=== PATIENT | female | born 1955 ===

== ENCOUNTER 2016-11-07 22:41 | Inpatient (IN) | payer MEDICARE ==
[2016-11-07] MEDS ORDERED: Sodium Chloride 0.9% 1,000 ML IV STA (23:06)
--- NOTE | 2016-11-07 23:10 | ED PDOC ---
HPI: Abdomen Time Seen by Provider: 11/07/16 22:52 Chief Complaint (Nursing): Abdominal Pain History Per: Patient History/Exam Limitations: no limitations Onset/Duration Of Symptoms: Mins (30) Outside of [place] travel?: No Current Symptoms Are (Timing): Still Present Context: Other (hx Renal calculi) Severity: Severe Pain Scale Rating Of: 9 Location Of Pain/Discomfort: Other (left flank) Quality Of Discomfort: Sharp, Stabbing Associated Symptoms: Nausea, Vomiting. denies: Fever, Chills, Diarrhea, Loss Of Appetite, Back Pain, Chest Pain, Constipation, Urinary Symptoms Alleviating Factors: None Additional History Per: Patient Additional Complaint(s): 61 y/o female with PMHx HTN, DM, HLD, and Renal/Ureteral Calculi who presents this evening complaining of nausea, vomiting, and sudden onset sharp/ stabbing left flank pain x30 minutes which she complains is consistent with her PMHx of Renal Calculi. Pain is 9/10 and constant, nonradiating. Emesis is nonbloody and nonbillious. No chest pain, shortness of breath, cough, fever, or urinary complaints. No other complaints at this time. Past Medical History Vital Signs: Last Vital Signs Temp 98.6 F 11/08/16 15:30 Pulse 77 11/08/16 15:30 Resp 18 11/08/16 15:30 BP 106/64 11/08/16 15:30 Pulse Ox 94 L 11/08/16 15:30 - Medical History PMH: Diabetes, HTN, Hypercholesterolemia, Kidney Stones Denies: Chronic Kidney Disease - Surgical History Surgical History: Appendectomy, Cholecystectomy - Family History Family History: States: Unknown Family Hx - Social History Current smoker - smoking cessation education provided: No Alcohol: None Drugs: Denies - Home Medications Home Medications: Ambulatory Orders Medication Instructions Recorded Aspirin [Adult Low Dose Aspirin EC] 81 mg PO DAILY #0 tablet. 02/17/16 Atenolol [Tenormin] 50 mg PO DAILY #0 tab 02/17/16 Enalapril Maleate [Vasotec] 20 mg PO DAILY #0 tab 02/17/16 Glimepiride [Amaryl] 1.5 mg PO BID #0 tab 02/17/16 Omeprazole 20 mg PO DAILY #0 capsule. 02/17/16 Sitagliptin Phos/Metformin HCl 50 mg PO BID #0 tablet 02/17/16 [Janumet 50-1,000 mg Tablet] Dextran 70/Hypromellose 2 drop OD Q4 #1 bottle 07/28/16 [Artificial Tears Eye Drops] Polyethylene Glycol/Polyvinyl 1 appl OD HS #1 bottle 07/28/16 [Artificial Tears] Prednisone [Deltasone] 20 mg PO DAILY #30 tablet 07/28/16 Dextran/Hypromellose/Glycerin 1 drop BOTHEYES DAILY 11/08/16 [Genteal Tears 0.1%-0.2%-0.3%] Fluticasone Propionate [Flovent 1 spray PADILLA DAILY 11/08/16 Diskus] - Allergies Allergies/Adverse Reactions: Allergies Allergy/AdvReac Type Severity Reaction Status Date / Time No Known Allergies Allergy Verified 05/04/16 09:49 Review of Systems ROS Statement: Except As Marked, All Systems Reviewed And Found Negative Constitutional: Negative for: Fever, Chills Cardiovascular: Negative for: Chest Pain Respiratory: Negative for: Shortness of Breath Gastrointestinal: Positive for: Nausea, Vomiting, Other (flank pain) Genitourinary Female: Negative for: Dysuria, Hematuria Musculoskeletal: Negative for: Back Pain Physical Exam - Reviewed Nursing Documentation Reviewed: Yes Vital Signs Reviewed: Yes - Physical Exam Appears: Positive for: Well, Non-toxic, Uncomfortable (actively vomiting - emesis nonbloody and non billious) Head Exam: Positive for: ATRAUMATIC, NORMOCEPHALIC Skin: Positive for: Normal Color, Warm, DRY Eye Exam: Positive for: EOMI, Normal appearance, PERRL ENT: Positive for: Normal ENT Inspection Neck: Positive for: Normal, Painless ROM Cardiovascular/Chest: Positive for: Regular Rate, Rhythm Respiratory: Positive for: CNT, Normal Breath Sounds Gastrointestinal/Abdominal: Positive for: Normal Exam, Bowel Sounds, Soft. Negative for: Tenderness Back: Positive for: Normal Inspection. 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 ) - Laboratory Results Result Diagrams: 11/07/16 23:17 11/07/16 23:17 - ECG O2 Sat by Pulse Oximetry: 100 (RA) Pulse Ox Interpretation: Normal Medical Decision Making Medical Decision Making: Initial Impression: 61 y/o female with history of Renal Calculi presenting with nausea, vomiting, and left flank pain in the setting of PMHx Renal Calculi. Differential includes nonspecific abdominal pain, renal calculi, and pyleonephritis. Initial Plan: - Labs and UA - EKG - CT Abdomen/Pelvis - IVF - IV Toradol [facility] Final Radiology Report Call: [phone] assistance Online chat: [email or web address] Patient Name: DAHLIA SPAULDING (Age): 1955 61 Gender: F Date of Exam: 11/07/2016 Referring Physician: Gordon Isabel # of Images: [phone] Ordered As: CT ABD PELVIS W O PO OR IV CONT Page 1 of 2 EXAM: CT Abdomen and Pelvis Without Intravenous Contrast CLINICAL HISTORY: 61 years old, female; Pain; Abdominal pain; Flank; Left lower quadrant (llq); Additional info: Renal colic TECHNIQUE: Axial computed tomography images of the abdomen and pelvis without intravenous contrast. This CT exam was performed using one or more of the following dose reduction techniques: automated exposure control, adjustment of the mA and/or kV according to patient size, and/ or use of iterative reconstruction technique. Coronal and sagittal reformatted images were created and reviewed. COMPARISON: No relevant prior studies available. FINDINGS: Lower thorax: Minimal atelectasis/scarring. Small hiatal hernia. ABDOMEN: Liver: Mild fatty infiltration. Gallbladder and bile ducts: Cholecystectomy. No ductal dilation. Pancreas: Unremarkable. No ductal dilation. Spleen: No splenomegaly. Adrenals: No mass. Kidneys and ureters: Large LEFT renal cyst with focal peripheral calcification. Tiny RIGHT renal angiomyolipoma. No renal calculi. Mild pelvocaliectasis of LEFT kidney. Mildly dilated LEFT proximal ureter. 0.6 x 0.4 x 0.3 cm calculus within LEFT mid ureter. Stomach and bowel: Scattered diverticula within colon. No associated inflammatory stranding. No definite mural thickening. No obstruction. Appendix: No findings to suggest acute appendicitis. PELVIS: Bladder: Unremarkable. No stones. Reproductive: Unremarkable as visualized. ABDOMEN and PELVIS: Intraperitoneal space: No significant fluid collection. No free air. Bones/joints: Chronic L5 pars defects. No acute fracture. Soft tissues: Tiny umbilical hernia containing fat. Vasculature: [id number] atherosclerotic disease of aorta. No aneurysm. Lymph nodes: No pathologically enlarged lymph nodes. IMPRESSION: 1. LEFT mid ureteral calculus with mild hydroureteronephrosis. 2. Incidental/non-acute findings are described above. Thank you for allowing us to participate in the care of your patient. Dictated and Authenticated by: Shai Lerner MD 11/08/2016 12:35 AM Eastern Time ([place] & [place]) 01:12: Patient continues to complain of pain and was given Dilaudid 1 mg IV. 1:50: Given patient requirement of 3 doses opiate for analgesia provider will admit for further tx and pain management; Spoke with Dr. Michel, Family Practice Resident covering Dr Charles patient for admission. Scribe Attestation: Documented by Alesha Joyner acting as a scribe for Gordon Isabel MD. Scribe Attestation: All medical record entries made by the Scribe were at my direction and personally dictated by me. I have reviewed the chart and agree that the record accurately reflects my personal performance of the history, physical exam, medical decision making, and the department course for this patient. I have also personally directed, reviewed, and agree with the discharge instructions and disposition. Disposition - Clinical Impression Clinical Impression: Ureteral calculus - Patient ED Disposition Is Patient to be Admitted: Yes Doctor Will See Patient In The: Hospital Counseled Patient/Family Regarding: Studies Performed, Diagnosis - Disposition Disposition Time: 01:50 Condition: FAIR - Pt Status Changed To: Hospital Disposition Of: Observation
[2016-11-07 23:21] LABS: BASO # 0.1 K/uL (0.0-0.2); BASO % 0.7 % (0.0-2.0); EOS # 0.2 K/uL (0.0-0.7); EOS % 1.7 % (0.0-4.0); HEMATOCRIT 36.6 % (34.0-47.0); LYMPH # 3.7 K/uL (1.0-4.3); LYMPH % 34.1 % (20.0-40.0); MEAN CELL VOLUME 78.4 fl (81.0-99.0); MEAN CORPUSCULAR HEMOGLOBIN 25.6 pg (27.0-31.0); MEAN CORPUSCULAR HGB CONC 32.7 g/dL (33.0-37.0); MEAN PLATELET VOLUME 8.6 fl (7.2-11.7); MONO # 0.5 K/uL (0.0-0.8); MONO % 4.9 % (0.0-10.0); NEUT # 6.3 K/uL (1.8-7.0); NEUT % 58.6 % (50.0-75.0); NRBC % 0.1 % (0.0-0.0); RED CELL DISTRIBUTION WIDTH 15.3 % (11.5-14.5); WHITE BLOOD COUNT 10.8 K/uL (4.8-10.8)
[2016-11-07 23:31] LABS: ALB/GLOB RATIO 1.5 (1.0-2.1); ALKALINE PHOSPHATASE 70 U/L (38-126); ALT/SGPT 33 U/L (9-52); AST/SGOT 25 U/L (14-36); BILIRUBIN,TOTAL 0.4 mg/dl (0.2-1.3); BLOOD UREA NITROGEN 16 mg/dl (7-17); CARBON DIOXIDE 27 mmol/L (22-30); CHLORIDE 103 mmol/L (98-107); GFR AFRICAN-AMERICAN > 60; GLUCOSE,RANDOM 245 mg/dL (65-105); LIPASE 93 U/L (23-300); POTASSIUM 3.4 MMOL/L (3.6-5.0); SODIUM 143 mmol/l (132-148); TOTAL PROTEIN 8.1 G/DL (6.3-8.2)
--- NOTE | 2016-11-08 00:36 | CT ---
EXAM: CT Abdomen and Pelvis Without Intravenous Contrast CLINICAL HISTORY: 61 years old, female; Pain; Abdominal pain; Flank; Left lower quadrant (llq); Additional info: Renal colic TECHNIQUE: Axial computed tomography images of the abdomen and pelvis without intravenous contrast. This CT exam was performed using one or more of the following dose reduction techniques: automated exposure control, adjustment of the mA and/or kV according to patient size, and/or use of iterative reconstruction technique. Coronal and sagittal reformatted images were created and reviewed. COMPARISON: No relevant prior studies available. FINDINGS: Lower thorax: Minimal atelectasis/scarring. Small hiatal hernia. ABDOMEN: Liver: Mild fatty infiltration. Gallbladder and bile ducts: Cholecystectomy. No ductal dilation. Pancreas: Unremarkable. No ductal dilation. Spleen: No splenomegaly. Adrenals: No mass. Kidneys and ureters: Large LEFT renal cyst with focal peripheral calcification. Tiny RIGHT renal angiomyolipoma. No renal calculi. Mild pelvocaliectasis of LEFT kidney. Mildly dilated LEFT proximal ureter. 0.6 x 0.4 x 0.3 cm calculus within LEFT mid ureter. Stomach and bowel: Scattered diverticula within colon. No associated inflammatory stranding. No definite mural thickening. No obstruction. Appendix: No findings to suggest acute appendicitis. PELVIS: Bladder: Unremarkable. No stones. Reproductive: Unremarkable as visualized. ABDOMEN and PELVIS: Intraperitoneal space: No significant fluid collection. No free air. Bones/joints: Chronic L5 pars defects. No acute fracture. Soft tissues: Tiny umbilical hernia containing fat. Vasculature: Anno-[id number]-[id number] atherosclerotic disease of aorta. No aneurysm. Lymph nodes: No pathologically enlarged lymph nodes. IMPRESSION: 1. LEFT mid ureteral calculus with mild hydroureteronephrosis. 2. Incidental/non-acute findings are described above.
[2016-11-08] MEDS ORDERED: Sodium Chloride 0.9% 1,000 ML IV STA (02:15)
[2016-11-08] MEDS ORDERED: Dextrose 50% SYRINGE Inj (50 ml) IV PRN (03:07)
[2016-11-08] MEDS ORDERED: Glucagon Recombinant 1 mg Inj IM PRN (03:07)
--- NOTE | 2016-11-08 03:16 | CP.PCM.HP ---
History of Present Illness - History of Present Illness History of Present Illness: 61 y/o F with PMH including HTN, NIDDM2, Nephrolithiasis presents to ED , accompanied by her son, with 6 hour history of left sided flank pain associated with nausea and vomiting. Patient reports gradual onset of left flank pain prior to assessment. Pain originated in left flank, radiated to groin , was "strong" in quality, and was as high as 9/10 intensity. Pain was associated with nausea and 6-8 episodes of non-bloody, non-bilious emesis. She has had similar pain in the past, 10 years ago, when she was diagnosed with a right sided kidney stone. During that episode she ultimately required lithotripsy but does not recall if procedure was shock wave or laser lithotripsy. Currently patient denies fevers, chills, chest pain, sob, diarrhea , dysuria, urinary frequency or urgency. PMD: Dr Randy Magaña, [facility] Present on Admission - Present on Admission Any Indicators Present on Admission: No History of DVT/PE: No History of Uncontrolled Diabetes: No Urinary Catheter: No Review of Systems - Constitutional Constitutional: absent: Fever - Cardiovascular Cardiovascular: absent: Chest Pain, Dyspnea, Leg Edema, Palpitations - Respiratory Respiratory: absent: Cough, Dyspnea, Chest Congestion - Gastrointestinal Gastrointestinal: Abdominal Pain (left sided flank pain), Nausea, Vomiting. absent: Constipation, Diarrhea, Hematemesis - Genitourinary Genitourinary: Hx Renal/Bladder Calculi. absent: Dysuria, Hematuria (No gross hematuria noted), Urinary Frequency, Urinary Urgency Past Patient History - Infectious Disease Hx of Infectious Diseases: None - Past Medical History & Family History Past Medical History?: Yes - Past Social History Smoking Status: Never Smoked Alcohol: None Drugs: Denies Home Situation {Lives}: With Family - CARDIAC Hx Hypercholesterolemia: Yes Hx Hypertension: Yes - PULMONARY Hx Respiratory Disorders: No - NEUROLOGICAL Other/Comment: Keller's palsy - HEENT Hx HEENT Problems: No - RENAL Hx Chronic Kidney Disease: No Hx Kidney Stones: Yes - ENDOCRINE/METABOLIC Hx Endocrine Disorders: Yes Hx Diabetes Mellitus Type 2: Yes - HEMATOLOGICAL/ONCOLOGICAL Hx Blood Disorders: No - INTEGUMENTARY Hx Dermatological Problems: No - MUSCULOSKELETAL/RHEUMATOLOGICAL Hx Musculoskeletal Disorders: No - GASTROINTESTINAL Hx Gastroesophageal Reflux: Yes - PSYCHIATRIC Hx Psychophysiologic Disorder: No Hx Substance Use: No - SURGICAL HISTORY Hx Appendectomy: Yes Hx Cholecystectomy: Yes - ANESTHESIA Hx Anesthesia: Yes Hx Anesthesia Reactions: No Hx Malignant Hyperthermia: No Meds Allergies/Adverse Reactions: Allergies Allergy/AdvReac Type Severity Reaction Status Date / Time No Known Allergies Allergy Verified 05/04/16 09:49 Physical Exam - Constitutional Appears: No Acute Distress, Other (Uncomfortable) - Head Exam Head Exam: ATRAUMATIC, NORMAL INSPECTION, NORMOCEPHALIC - Eye Exam Eye Exam: EOMI, PERRL - ENT Exam ENT Exam: Mucous Membranes Dry - Respiratory Exam Respiratory Exam: Clear to Auscultation Bilateral, NORMAL BREATHING PATTERN. absent: Rales, Rhonchi, Wheezes, Respiratory Distress - Cardiovascular Exam Cardiovascular Exam: REGULAR RHYTHM, RRR, +S1, +S2, Systolic Murmur (Grade II/ ) - GI/Abdominal Exam GI & Abdominal Exam: Normal Bowel Sounds, Soft, Tenderness (Left flank tenderness, No suprapubic tenderness). absent: Distended, Guarding, Rebound - Extremities Exam Extremities exam: Positive for: normal capillary refill. Negative for: calf tenderness, pedal edema - Back Exam Back exam: CVA tenderness (L) - Neurological Exam Neurological exam: Alert, Oriented x3 - Skin Skin Exam: Dry, Normal Color, Warm Results - Vital Signs Recent Vital Signs: Last Vital Signs Temp 98.3 F 11/07/16 22:43 Pulse 97 H 11/08/16 02:00 Resp 18 11/08/16 02:00 BP 157/73 H 11/08/16 02:00 Pulse Ox 100 11/08/16 02:05 - Labs Result Diagrams: 11/07/16 23:17 11/07/16 23:17 Assessment & Plan - Assessment and Plan (Free Text) Assessment: 61 y/o female with PMH including HTN, NIDDM2, Nephrolithiasis presented to ED with 6 hour history of gradually increasing left sided flank pain associated with nausea and vomiting. Patient was found to have CT evidence of left ureteral calculus associated with left sided hydroureteronephrosis. Pain was refractory to toradol and morphine, requiring dilaudid for adequate control. Plan: Left-sided Ureteral Calculus -CT reveals left mid ureteral calculus measuring 0.6cm x 0.4cm x 0.3cm. A mildly dilated left proximal ureter is present with hydroureteronephrosis. -Patient has history of kidney stones in the past and required lithotripsy intervention approximately 10 years ago -Based on size of calculus, will attempt medical expulsive therapy -Received flomax 0.8mg in ED -Will continue flomax 0.8mg PO daily -Pain control with toradol 30mg IV Q6 prn moderate pain and morphine 4mg IV Q4 prn severe pain -Zofran for nausea -Strain urine for calculi -Patient remains hemodynamically stable with no signs of sepsis or renal function abnormality. Will consider urology consultation if patient does not improve Hypertension -Elevated BP measurements in ED likely secondary to pain -Continue vasotec 20mg PO daily and atenolol 50mg PO daily -Follow BP and adjust medications as needed NIDDM2, with hyperglycemia -Last HgbA1c: 8.7% on 09/23/16 -Home meds held: Janumet PO BID, amaryl 1.5mg PO BID -Low dose sliding scale started -Desiree LEWIS -Hypoglycemia protocol DVT Prophylaxis -Lovenox 40mg SC daily
[2016-11-08] MEDS: Lactated Ringer's 1,000 ML IV SCH ×3 (04:10→23:58)
[2016-11-08 05:15] LABS: RBC URINE 103 /hpf (0-3); URINE BACTERIA RARE (<OCC); URINE BILIRUBIN NEGATIVE (NEGATIVE); URINE BLOOD LARGE (NEGATIVE); URINE COLOR YELLOW (YELLOW); URINE GLUCOSE (UA) >=500 mg/dL (Normal); URINE KETONE TRACE mg/dL (NEGATIVE); URINE LEUKOCYTE ESTERASE NEG Leu/uL (Negative); URINE PROTEIN 30 mg/dL (NEGATIVE); URINE UROBILINOGEN 0.2-1.0 mg/dL (0.2-1.0); WBC URINE 3 /hpf (0-5)
[2016-11-08] MEDS ORDERED: Insulin Regular 100 units/ml SC SCH (07:30)
[2016-11-08] MEDS ORDERED: FLUTICASONE PROPIONATE NAS SCH (09:00)
[2016-11-08] MEDS: Enoxaparin 40 mg Syringe SC SCH (09:34)
[2016-11-08] MEDS: Pantoprazole 40 mg EC Tab PO SCH (09:34)
--- NOTE | 2016-11-08 10:57 | CARD ---
APPROVED REPORT EKG Measurement Heart [id number] <Conclusion> Normal sinus rhythm with sinus arrhythmia Normal ECG
[2016-11-08] MEDS: Insulin Regular 100 units/ml SC SCH ×3 (11:30→22:43)
--- NOTE | 2016-11-08 11:37 | CP.PCM.PCO ---
Physician Communication Note - Physician Communication Note Physician Communication Note: Pt seen this morning. Stable. Still c/o pain. New labs ordered. Monitoring
[2016-11-08] MEDS ORDERED: Artificial Tears Opht Soln OD SCH (22:00)
[2016-11-09] MEDS: Lactated Ringer's 1,000 ML IV SCH ×2 (05:05→12:17)
[2016-11-09] MEDS: Insulin Regular 100 units/ml SC SCH ×2 (09:00→12:14)
[2016-11-09] MEDS: Enoxaparin 40 mg Syringe SC SCH (09:01)
[2016-11-09] MEDS: Pantoprazole 40 mg EC Tab PO SCH (09:01)
--- NOTE | 2016-11-09 11:53 | CP.PCM.DIS ---
Provider - Provider Date of Admission: 11/08/16 19:59 Attending physician: Noreen Cross MD Primary care physician: Dr Magaña [facility] Time Spent in preparation of Discharge (in minutes): 30 Diagnosis - Discharge Diagnosis (1) Ureteral calculus Status: Acute Comment: Stable. 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 Consider readjustment outpatient treatment (4) Diabetes Status: Chronic Comment: Controlled with [facility] Course - Lab Results Lab Results: Most Recent Lab Values WBC 10.8 K/uL (4.8-10.8) 11/07/16 23:17 RBC 4.67 Mil/uL (3.80-5.20) 11/07/16 23:17 Hgb 12.0 g/dL (12.0-16.0) 11/07/16 23:17 Hct 36.6 % (34.0-47.0) 11/07/16 23:17 MCV 78.4 fl (81.0-99.0) L 11/07/16 23:17 MCH 25.6 pg (27.0-31.0) L 11/07/16 23:17 MCHC 32.7 g/dL (33.0-37.0) L 11/07/16 23:17 RDW 15.3 % (11.5-14.5) H 11/07/16 23:17 Plt Count 257 K/uL (130-400) 11/07/16 23:17 MPV 8.6 fl (7.2-11.7) 11/07/16 23:17 Neut % (Auto) 58.6 % (50.0-75.0) 11/07/16 23:17 Lymph % (Auto) 34.1 % (20.0-40.0) 11/07/16 23: Stewart % (Auto) 4.9 % (0.0-10.0) 11/07/16 23:17 Eos % (Auto) 1.7 % (0.0-4.0) 11/07/16 23:17 Baso % (Auto) 0.7 % (0.0-2.0) 11/07/16 23:17 Neut # 6.3 K/uL (1.8-7.0) 11/07/16 23:17 Lymph # 3.7 K/uL (1.0-4.3) 11/07/16 23:17 Stewart # 0.5 K/uL (0.0-0.8) 11/07/16 23:17 Eos # 0.2 K/uL (0.0-0.7) 11/07/16 23:17 Baso # 0.1 K/uL (0.0-0.2) 11/07/16 23:17 Sodium 143 mmol/l (132-148) 11/07/16 23:17 Potassium 3.4 MMOL/L (3.6-5.0) L 11/07/16 23:17 Chloride 103 mmol/L (98-107) 11/07/16 23:17 Carbon Dioxide 27 mmol/L (22-30) 11/07/16 23:17 Anion Gap 16 (10-20) 11/07/16 23:17 BUN 16 mg/dl (7-17) 11/07/16 23:17 Creatinine 0.7 mg/dL (0.7-1.2) 11/07/16 23:17 Est GFR ( Amer) > 60 11/07/16 23:17 Est GFR (Non-Af Amer) > 60 11/07/16 23:17 POC Glucose (mg/dL) 215 mg/dL (65-110) H 11/09/16 11:19 Random Glucose 245 mg/dL (65-105) H 11/07/16 23:17 Uric Acid 3.1 mg/Dl (2.2-7.5) 11/08/16 11:45 Calcium 10.0 mg/dL (8.4-10.2) 11/07/16 23:17 Total Bilirubin 0.4 mg/dl (0.2-1.3) 11/07/16 23:17 AST 25 U/L (14-36) 11/07/16 23:17 ALT 33 U/L (9-52) 11/07/16 23:17 Alkaline Phosphatase 70 U/L (38-126) 11/07/16 23:17 Total Protein 8.1 G/DL (6.3-8.2) 11/07/16 23:17 Albumin 4.9 g/dL (3.5-5.0) 11/07/16 23:17 Globulin 3.2 gm/dL (2.2-3.9) 11/07/16 23:17 Albumin/Globulin Ratio 1.5 (1.0-2.1) 11/07/16 23:17 Lipase 93 U/L (23-300) 11/07/16 23:17 Urine Color Yellow (YELLOW) 11/08/16 04:37 Urine Clarity Clear (Clear) 11/08/16 04:37 Urine pH 6.0 (5.0-8.0) 11/08/16 04:37 Ur Specific [place] 1.017 (1.003-1.030) 11/08/16 04:37 Urine Protein 30 mg/dL (NEGATIVE) 11/08/16 04:37 Urine Glucose (UA) >=500 mg/dL (Normal) 11/08/16 04:37 Urine Ketones Trace mg/dL (NEGATIVE) 11/08/16 04:37 Urine Blood Large (NEGATIVE) 11/08/16 04:37 Urine Nitrate Negative (NEGATIVE) 11/08/16 04:37 Urine Bilirubin Negative (NEGATIVE) 11/08/16 04:37 Urine Urobilinogen 0.2-1.0 mg/dL (0.2-1.0) 11/08/16 04:37 Ur Leukocyte Esterase Neg Adalid/uL (Negative) 11/08/16 04:37 Urine RBC (Auto) 103 /hpf (0-3) H 11/08/16 04:37 Urine Microscopic WBC 3 /hpf (0-5) 11/08/16 04:37 Urine Bacteria Rare (<OCC) 11/08/16 04:37 - Hospital Course Hospital Course: 61 y/o F with PMhx of DM, HTN, Keller's Palsy presented to ED for sudden onset flank pain and nausea. CT of the abd and pelvis showed a 0.6cm L/ureteral stone and L/renal cyst. Patient was admitted and started with pain meds, zofran, IV fluids and flomax. Patient responded well to treatment, nausea resolved, she is tolerating PO, pain has improved and she is decided to DC home to [facility] outpatient treatment with PO fluids, F/U with PMD and following meds Discharge meds: FLomax 0.4mg daily Percocet 1 tab q6h PRN for pain(15) Zofran for nausea PRN Enalapril 20 mg Atenolol 50mg daily Janumet 50/1000mg BID Discharge Exam - Head Exam Head Exam: ATRAUMATIC, NORMOCEPHALIC - Eye Exam Eye Exam: PERRL - ENT Exam ENT Exam: Mucous Membranes Moist - Respiratory Exam Respiratory Exam: Clear to PA & Lateral, NORMAL BREATHING PATTERN - Cardiovascular Exam Cardiovascular Exam: REGULAR RHYTHM, +S1, +S2. absent: Gallop - GI/Abdominal Exam GI & Abdominal Exam: Normal Bowel Sounds, Tenderness (LUQ and L/flank). absent : Distended, Rebound - Extremities Exam Extremities exam: normal capillary refill - Back Exam Back exam: CVA tenderness (L). absent: CVA tenderness (R) - Neurological Exam Neurological exam: Alert, Motor Sensory Deficit, Oriented x3 Additional comments: Drop of the corner of the mouth to l/side, unable to fully close r/eye, loss of forehead wrinkling on the R/side - Psychiatric Exam Psychiatric exam: Normal Affect, Normal Mood - Skin Skin Exam: Intact, Normal Color, Warm Discharge Plan - Discharge Medications Prescriptions: Acetaminophen/Oxycodone Hydr [Percocet 10/325 mg Tab] 1 tab PO Q6H PRN #15 tab PRN Reason: Pain, Moderate (4-7) Tamsulosin HCl [Flomax] 0.4 mg PO DAILY #30 cap.er.24h - Follow Up Plan Condition: FAIR Disposition: HOME/ ROUTINE Instructions: Ureteral Stones (ED)
[2016-11-09 15:54] VITALS: BP 151/77; PULSE 79; RESP 17; TEMP 98.2; O2SAT 97
== END 2016-11-09 16:26 | disposition home or self-care (01) | DRG 694 ==
LOC: H.ER 22:41 → H.ERHOLD 11-08 01:52 → H.MEDSURG1 11-08 03:20 → OBSVTOIN 11-08 19:59
PROVIDERS: ADMIT Family Medicine Geriatric Medicine; ATTEND Family Medicine Geriatric Medicine
DX: N13.2 Hydronephrosis with renal and ureteral calculous obstruction (principal); E11.65 Type 2 diabetes mellitus with hyperglycemia; I10 Essential (primary) hypertension; E78.5 Hyperlipidemia, unspecified; E78.00 Pure hypercholesterolemia, unspecified; G51.0 Bell's palsy; Z87.442 Personal history of urinary calculi; Z79.82 Long term (current) use of aspirin

== ENCOUNTER 2017-09-13 13:55 | Emergency (ER) | payer MEDICARE ==
[2017-09-13] MEDS ORDERED: Iodixanol 320 MG/ML 100 ML BOTTLE IV ONE (14:14)
[2017-09-13] MEDS ORDERED: Sodium Chloride 0.9% 100 ML ONE (14:15)
--- NOTE | 2017-09-13 14:26 | CT ---
PROCEDURE: CT HEAD WITHOUT CONTRAST. HISTORY: CVA alert COMPARISON: 07/28/2016. TECHNIQUE: Axial computed tomography images were obtained through the head/brain without intravenous contrast. Radiation dose: Total exam DLP = 622.52 mGy-cm. This CT exam was performed using one or more of the following dose reduction techniques: Automated exposure control, adjustment of the mA and/or kV according to patient size, and/or use of iterative reconstruction technique. FINDINGS: HEMORRHAGE: No intracranial hemorrhage. BRAIN: Russell-white matter differentiation is preserved. There is no mass, mass effect or abnormal extra-axial fluid collection. There is no territorial infarction. VENTRICLES: The ventricles are normal in size, shape and configuration. CALVARIUM: The skull base and calvarium are normal. PARANASAL SINUSES: Predominantly clear. MASTOID AIR CELLS: Predominantly clear. OTHER FINDINGS: None. IMPRESSION: No acute intracranial abnormality. If there is a persistent focal neurologic deficit and an ongoing clinical concern for acute infarction, an MRI of the brain without intravenous contrast would be a more sensitive modality for evaluation of hyperacute/acute ischemic infarction.
[2017-09-13 14:35] LABS: BASO # 0.1 K/uL (0.0-0.2); BASO % 0.9 % (0.0-2.0); EOS # 0.7 K/uL (0.0-0.7); EOS % 6.8 % (0.0-4.0); HEMOGLOBIN 11.9 g/dL (12.0-16.0); LYMPH % 27.3 % (20.0-40.0); MEAN CELL VOLUME 77.6 fl (81.0-99.0); MEAN CORPUSCULAR HEMOGLOBIN 25.5 pg (27.0-31.0); MEAN CORPUSCULAR HGB CONC 32.9 g/dL (33.0-37.0); MEAN PLATELET VOLUME 8.3 fl (7.2-11.7); MONO # 0.6 K/uL (0.0-0.8); MONO % 5.6 % (0.0-10.0); NEUT # 6.5 K/uL (1.8-7.0); NEUT % 59.4 % (50.0-75.0); RBC 4.67 Mil/uL (3.80-5.20); RED CELL DISTRIBUTION WIDTH 15.5 % (11.5-14.5); WHITE BLOOD COUNT 10.9 K/uL (4.8-10.8)
[2017-09-13 14:42] LABS: INR 1.1 (0.9-1.2); PARTIAL THROMBOPLASTIN TIME 33.4 Seconds (25.6-37.1); PROTHROMBIN TIME 11.7 Seconds (9.8-13.1)
--- NOTE | 2017-09-13 14:47 | CT ---
PROCEDURE: CTA HEAD AND NECK WITH CONTRAST HISTORY: CVA alert COMPARISON: None available. TECHNIQUE: Initial noncontrast head CT was performed. Subsequently, CT angiogram of the head and neck were performed after the intravenous administration of 80 mL of Omnipaque 350. Contiguous 1.5mm thick images were obtained in the axial plane of the neck. 2-D coronal and sagittal MPR images were obtained. Imaging postprocessing was performed with 3-D images also obtained. A delayed contrast head CT was also obtained. This CT exam was performed using one or more of the following dose reduction techniques: Automated exposure control, adjustment of the mA and/or kV according to patient size, and/or use of iterative reconstruction technique. Contrast dose: 99 cc Visipaque 320 Radiation dose: Total exam DLP = 530.41 mGy-cm. FINDINGS: HEAD: Right: The intracranial internal carotid artery, and anterior and middle cerebral arteries are widely patent. Left: The intracranial internal carotid artery, and anterior and middle cerebral arteries are widely patent. Posterior circulation: The visualized intracranial vertebral arteries, basilar artery and posterior cerebral arteries are widely patent. Ther is no endoluminal filling defect to suggest thrombus. There is no intracranial saccular aneurysm. There is no abnormal enhancement on the postcontrast CT. NECK: There is a two vessel aortic arch with common origin of innominate and left common carotid artery is. There is no stenosis at the origins of the great vessels at the level of the aortic arch. Right Carotid: On the right, the common carotid, internal carotid and external carotid arteries are widely patent. There is no hemodynamically significant stenosis in the internal carotid artery by NASCET criteria. Left Carotid: On the left, the common carotid, internal carotid and external carotid arteries are widely patent. There is no hemodynamically significant stenosis in the internal carotid artery by NASCET criteria. The vertebral arteries are widely patent. The right vertebral artery is hypoplastic, an anatomic variant. The visualized soft tissues of the neck are normal. The visualized brain and cervical spine are within normal limits. There is a 4 mm noncalcified nodule in the right apex (series 3, image 209) there is also mild traction bronchiectasis in the right upper lobe with apparent fibrotic changes. The left apex is clear. IMPRESSION: No evidence of endoluminal thrombus, occlusion or definite significant stenosis. No saccular aneurysm. No evidence of hemodynamically significant stenosis in the internal carotid arteries by NASCET criteria. Patent vertebral arteries. The right vertebral artery is hypoplastic, an anatomic variant. 4 mm noncalcified nodule in the right apex. CT scan of the thorax without intravenous contrast on a nonemergent basis is recommended for complete evaluation of the lungs.
[2017-09-13 14:55] LABS: ALB/GLOB RATIO 1.2 (1.0-2.1); ALBUMIN 4.4 g/dL (3.5-5.0); ALT/SGPT 35 U/L (9-52); AST/SGOT 17 U/L (14-36); B-TYPE NATRIURETIC PEPTIDE 26.9 pg/ml (0-900); BLOOD UREA NITROGEN 13 mg/dl (7-17); CALCIUM 9.9 mg/dL (8.4-10.2); GFR AFRICAN-AMERICAN > 60; GFR NON-AFRICAN AMERICAN > 60
--- NOTE | 2017-09-13 15:06 | RAD ---
HISTORY: weakness COMPARISON: No prior. FINDINGS: LUNGS: The lungs are clear. PLEURA: No significant pleural effusion identified, no pneumothorax apparent. CARDIOVASCULAR: Normal. OSSEOUS STRUCTURES: No significant abnormalities. VISUALIZED UPPER ABDOMEN: Normal. OTHER FINDINGS: Contrast material is identified in both collecting system from prior intravenous administration. IMPRESSION: No active pulmonary disease.
--- NOTE | 2017-09-13 16:46 | ED PDOC ---
HPI:STROKE - Time Time: 14:05 - Historian Historian: Patient - Chief Complaint Chief Complaint: Facial droop (left sided) - Onset Date: 09/13/17 Time: 05:00 Onset: This morning (5:00) - Notes: Notes:: Margo Mancera is a 62 year old female with a past medical history of hypertension, hyperlipidemia, diabetes, and [place] Palsy, who is presenting to the ER with complaints of left sided facial drooping, onset around 5 am this morning when she woke up. Patient states that she went to sleep last night completely normal and did not exhibit any symptoms. She denies any changes in vision, chest pain, shortness of breath, abdominal pain, or weakness in arms or legs. Patient offers no other medical complaints at this time. PMD: none provided NIHSS Stroke Scale - Date/Time Evaluation Performed Date Performed: 09/13/17 Time Performed: 14:00 When Was NIHSS Performed: Baseline - How Severe is the Stroke Level of Consciousness: 0=Alert LOC to Questions: 0=Both comments correct LOC to commands: 0=Obeys both correctly Best Gaze: 0=Normal Visual: 0=No visual loss Facial: 1=Minor asymmetry Motor Arm - Left: 0=No drift Motor Arm - Right: 0=No drift Motor Leg - Left: 0=No drift Motor Leg - Right: 0=No drift Limb Ataxia: 0=Absent Sensory: 0=Normal Best Language: 0=No aphasia Dysarthia: 0=Normal articulation Extinction & Inattention (Neglect): 0=Normal, no object Score: 1 rTPA Inclusion/Exclusion - Refusal of Treatment Patient Refused Treatment: No - Inclusion Criteria for Altepase Patient is 18 years or Older: Yes The Clinical Diagnosis of Ischemic Stroke That is Causing a Potentially Disabling Neurological Deficit: No Time of Onset is Well Established to be Less Than 270 Minute Before Treatment Would Begin: No Risk/Benefit Discussed With Patient/Family Member Present: No Past Medical History Reviewed: Historical Data, Nursing Documentation, Vital Signs Vital Signs: Last Vital Signs Temp 98 F 09/13/17 16:03 Pulse 88 09/13/17 16:03 Resp 15 09/13/17 16:03 BP 147/79 09/13/17 16:03 Pulse Ox 96 09/13/17 16:03 - Medical History PMH: Diabetes, HTN, Hypercholesterolemia, Kidney Stones Denies: Chronic Kidney Disease - Surgical History Surgical History: Appendectomy, Cholecystectomy - Family History Family History: States: Unknown Family Hx - Social History Current smoker - smoking cessation education provided: No Alcohol: None Drugs: Denies - Home Medications Home Medications: Ambulatory Orders Medication Instructions Recorded Aspirin [Ecotrin] 81 mg PO DAILY 09/13/17 Atorvastatin [Lipitor] 40 mg PO DAILY 09/13/17 Cholecalciferol [Vitamin D 1000 IU] 1 tab PO DAILY 09/13/17 Enalapril Maleate [Vasotec] 20 mg PO DAILY 09/13/17 Glimepiride [amaRYL] 2 mg PO DAILY 09/13/17 Sitagliptin Phos/Metformin HCl 1 tab PO BID 09/13/17 [Janumet 50-1,000 mg Tablet] - Allergies Allergies/Adverse Reactions: Allergies Allergy/AdvReac Type Severity Reaction Status Date / Time No Known Allergies Allergy Verified 09/13/17 13:58 Review of Systems ROS Statement: Except As Marked, All Systems Reviewed And Found Negative Constitutional: Positive for: Other (left alissa facial droop) Cardiovascular: Negative for: Chest Pain Respiratory: Negative for: Shortness of Breath Gastrointestinal: Negative for: Abdominal Pain Neurological: Positive for: Other (no weakness in arms or legs) Physical Exam - Reviewed Nursing Documentation Reviewed: Yes Vital Signs Reviewed: Yes - Physical Exam Appears: Positive for: Non-toxic, No Acute Distress Head Exam: Positive for: ATRAUMATIC, NORMAL INSPECTION, NORMOCEPHALIC Skin: Positive for: Normal Color, Warm, Dry Eye Exam: Positive for: EOMI, Normal appearance, PERRL Neck: Positive for: Normal, Painless ROM, Supple Cardiovascular/Chest: Positive for: Regular Rate, Rhythm. Negative for: Murmur Respiratory: Positive for: Normal Breath Sounds. Negative for: Respiratory Distress Gastrointestinal/Abdominal: Positive for: Normal Exam, Soft. Negative for: Tenderness Back: Positive for: Normal Inspection. Negative for: L CVA Tenderness, R CVA Tenderness, Vertebral Tenderness Extremity: Positive for: Normal ROM. Negative for: Deformity, Swelling Neurologic/Psych: Positive for: Alert, Oriented, Facial Droop (left sided, unable to fully close left eye), Other (5/5 x4 muscle strength - all extremities , (-) slurred speech, (+) muscles intact). Negative for: Motor/Sensory Deficits - Laboratory Results Result Diagrams: 09/13/17 14:25 09/13/17 14:25 - ECG O2 Sat by Pulse Oximetry: 96 (RA) Pulse Ox Interpretation: Normal - Core Measure Core Measure Indicators: Code Stroke - Critical Care Total Time (In Min): 60 Documented Critical Care: Time excludes all time spent performint seperately billable procedures Medical Decision Making Medical Decision Making: Time: 14:05 Code stroke was called upon Triage. Time: 14:07 Initial Plan: --CT Angio [CTA Head and Neck Bundle] --CT Head --B-Type Natriuretic Peptide --CMP --Troponin --CBC --Coag --Chest X-Ray --MRI Brain 16:[address] Arredondo in neurology who recommended a MRI. Will call Dr. Arredondo with results of MRI to further discuss patient's case. Head/Neck CTA: FINDINGS: HEAD: Right: The intracranial internal carotid artery, and anterior and middle cerebral arteries are widely patent. Left: The intracranial internal carotid artery, and anterior and middle cerebral arteries are widely patent. Posterior circulation: The visualized intracranial vertebral arteries, basilar artery and posterior cerebral arteries are widely patent. Ther is no endoluminal filling defect to suggest thrombus. There is no intracranial saccular aneurysm. There is no abnormal enhancement on the postcontrast CT. NECK: There is a two vessel aortic arch with common origin of innominate and left common carotid artery is. There is no stenosis at the origins of the great vessels at the level of the aortic arch. Right Carotid: On the right, the common carotid, internal carotid and external carotid arteries are widely patent. There is no hemodynamically significant stenosis in the internal carotid artery by NASCET criteria. Left Carotid: On the left, the common carotid, internal carotid and external carotid arteries are widely patent. There is no hemodynamically significant stenosis in the internal carotid artery by NASCET criteria. The vertebral arteries are widely patent. The right vertebral artery is hypoplastic, an anatomic variant. The visualized soft tissues of the neck are normal. The visualized brain and cervical spine are within normal limits. There is a 4 mm noncalcified nodule in the right apex (series 3, image 209) there is also mild traction bronchiectasis in the right upper lobe with apparent fibrotic changes. The left apex is clear. IMPRESSION: No evidence of endoluminal thrombus, occlusion or definite significant stenosis. No saccular aneurysm. No evidence of hemodynamically significant stenosis in the internal carotid arteries by NASCET criteria. Patent vertebral arteries. The right vertebral artery is hypoplastic, an anatomic variant. 4 mm noncalcified nodule in the right apex. CT scan of the thorax without intravenous contrast on a nonemergent basis is recommended for complete evaluation of the lungs. CT Head: FINDINGS: HEMORRHAGE: No intracranial hemorrhage. BRAIN: Russell-white matter differentiation is preserved. There is no mass, mass effect or abnormal extra-axial fluid collection. There is no territorial infarction. VENTRICLES: The ventricles are normal in size, shape and configuration. CALVARIUM: The skull base and calvarium are normal. PARANASAL SINUSES: Predominantly clear. MASTOID AIR CELLS: Predominantly clear. OTHER FINDINGS: None. IMPRESSION: No acute intracranial abnormality. If there is a persistent focal neurologic deficit and an ongoing clinical concern for acute infarction, an MRI of the brain without intravenous contrast would be a more sensitive modality for evaluation of hyperacute/acute ischemic infarction. Chest X-Ray: FINDINGS: LUNGS: The lungs are clear. PLEURA: No significant pleural effusion identified, no pneumothorax apparent. CARDIOVASCULAR: Normal. OSSEOUS STRUCTURES: No significant abnormalities. VISUALIZED UPPER ABDOMEN: Normal. OTHER FINDINGS: Contrast material is identified in both collecting system from prior intravenous administration. IMPRESSION: No active pulmonary disease. Scribe Attestation: Documented by Nataliia Gil, acting as a scribe for Aries Go DO. Provider Scribe Attestation: All medical record entries made by the Scribe were at my direction and personally dictated by me. I have reviewed the chart and agree that the record accurately reflects my personal performance of the history, physical exam, medical decision making, and the department course for this patient. I have also personally directed, reviewed, and agree with the discharge instructions and disposition. Disposition - Clinical Impression Clinical Impression: Facial droop - Disposition Disposition Time: 19:00 Condition: STABLE Forms: [facility] (Macanese) Patient Signed Over To: Conrad Machado Handoff Comments: to f/u MRI result
--- NOTE | 2017-09-13 19:44 | ED PDOC ---
- Laboratory Results Result Diagrams: 09/13/17 14:25 09/13/17 14:25 - ECG O2 Sat by Pulse Oximetry: 96 (RA) Pulse Ox Interpretation: Normal Medical Decision Making Medical Decision Making: Time: 19:00 Patient was signed out to me by Dr. Falcon, pending MRI and neurology review. MRI: FINDINGS: Brain: There is no extra-axial collection or intra-axial mass. Mild diffuse volume loss is within the range of normal for patient age. There are scattered foci of T2/flair hyperintensity within the periventricular white matter and subcortical white matter of, nonspecific but typically small vessel ischemia in this age group. There is no diffusion restriction. Sella: There is a partially empty sella. Ventricles: Unremarkable. No ventriculomegaly. Bones/joints: Unremarkable. Sinuses: There is mild ethmoid mucosal thickening. Mastoid air cells: Unremarkable as visualized. No mastoid effusion. Orbits: Unremarkable as visualized. IMPRESSION: No acute intracranial abnormality. 20:40 MRI results were discussed with Dr. Arredondo. Upon provider evaluation and consultation with Dr. Arredondo patient is medically stable, and requires no further treatment in the ED at this time. Patient will be discharged with Rx for Prednisone and acyclovir, doses as per Dr. Arredondo. Counseling was provided and all questions were answered regarding diagnosis. There is agreement to discharge plan. Return if symptoms persist or worsen. Scribe Attestation: Documented by Nataliia Gil, acting as a scribe for Conrad Machado MD Provider Scribe Attestation: All medical record entries made by the Scribe were at my direction and personally dictated by me. I have reviewed the chart and agree that the record accurately reflects my personal performance of the history, physical exam, medical decision making, and the department course for this patient. I have also personally directed, reviewed, and agree with the discharge instructions and disposition. Disposition - Clinical Impression Clinical Impression: Facial droop, Keller's palsy - POA Present On Arrival: None - Disposition Referrals: [facility] [Outside] [facility] [Outside] Disposition: Routine/Home Disposition Time: 20:00 Condition: IMPROVED Additional Instructions: follow up with neurology clinic (Dr Alfred) in [facility] in 10 days return to the ED with any worsening or concerning symptoms Prescriptions: Acyclovir [Zovirax] 800 mg PO BID #20 tablet Dextran 70/Hypromellose [Artificials Tears Drops] 30 ml OD DAILY #1 bot Eye Patch 1 each MC DAILY #1 each predniSONE [Prednisone] 80 mg PO DAILY #40 tab Instructions: Keller's Palsy (DC) Forms: [employer] (Swedish) Print Language: YAKUT
[2017-09-13 19:49] VITALS: RESP 18
[2017-09-13 20:32] VITALS: O2SAT 96
[2017-09-13 21:13] VITALS: BP 135/80; PULSE 89; TEMP 98.1
--- NOTE | 2017-09-14 09:47 | MRI ---
PROCEDURE: MRI BRAIN WITHOUT CONTRAST HISTORY: r/o CVA COMPARISON: None. TECHNIQUE: Multiplanar, multisequence MR images of the brain were obtained without intravenous contrast enhancement. FINDINGS: HEMORRHAGE: None DWI: No evidence of an acute or early subacute infarction. BRAIN PARENCHYMA: No mass effect or edema. There are minimal periventricular T2/FLAIR hyperintensities and a tiny right frontal lobe subcortical hyperintensity on the same sequences noted. No corresponding restricted diffusion suggested. Small-vessel disease changes are most consistent with this. Other etiologies are not excluded but believe less likely VENTRICLES: Unremarkable. No hydrocephalus. CRANIUM: Unremarkable. ORBITS: Grossly unremarkable. PARANASAL SINUSES/MASTOIDS: Mild ethmoidal sinus inflammatory changes present VASCULAR SYSTEM: Skull base flow voids intact. Partially empty sella noted - developmental variant OTHER FINDINGS: None. IMPRESSION: No acute infarct suggested. No hemorrhage or mass effect. Findings referenced above are a few and very small and probably relate to small vessel disease ischemic changes. Mild ethmoidal sinus inflammatory changes. Concordant results (preliminary interpretation) provided by [facility].
== END 2017-09-13 21:20 | disposition home or self-care (01) ==
LOC: H.ER 13:55
DX: G51.0 Bell's palsy (principal); E11.9 Type 2 diabetes mellitus without complications; E78.00 Pure hypercholesterolemia, unspecified; I10 Essential (primary) hypertension; Z79.82 Long term (current) use of aspirin; Z79.84 Long term (current) use of oral hypoglycemic drugs
CPT/HCPCS: 70450; 70496; 70498; 70551; 71045; 80053; 83880; 84484; 85025; 85610; 85730; 99285; Q9967

== ENCOUNTER 2018-06-16 22:51 | Emergency (ER) | payer MEDICARE ==
[2018-06-16 23:46] VITALS: RESP 18
[2018-06-17 01:18] LABS: BASO % 0.6 % (0.0-2.0); EOS # 0.4 K/uL (0.0-0.7); EOS % 4.4 % (0.0-4.0); HEMOGLOBIN 10.8 g/dL (12.0-16.0); LYMPH # 2.3 K/uL (1.0-4.3); MEAN CELL VOLUME 77.5 fl (81.0-99.0); MEAN CORPUSCULAR HGB CONC 32.3 g/dL (33.0-37.0); MEAN PLATELET VOLUME 8.2 fl (7.2-11.7); MONO # 0.4 K/uL (0.0-0.8); MONO % 4.5 % (0.0-10.0); NEUT # 5.1 K/uL (1.8-7.0); NEUT % 62.5 % (50.0-75.0); RBC 4.33 Mil/uL (3.80-5.20); RED CELL DISTRIBUTION WIDTH 14.6 % (11.5-14.5); WHITE BLOOD COUNT 8.2 K/uL (4.8-10.8)
[2018-06-17 01:26] LABS: SQUAMOUS EPITHIAL < 1 /hpf (0-5); URINE BILIRUBIN NEGATIVE (NEGATIVE); URINE BLOOD NEGATIVE (NEGATIVE); URINE CLARITY CLEAR (Clear); URINE COLOR YELLOW (YELLOW); URINE GLUCOSE (UA) NEG (NEGATIVE); URINE LEUKOCYTE ESTERASE NEG Leu/uL (Negative); URINE PROTEIN NEGATIVE (NEGATIVE); URINE UROBILINOGEN 0.2-1.0 mg/dL (0.2-1.0)
[2018-06-17 01:27] LABS: PROTHROMBIN TIME 11.6 Seconds (9.8-13.1)
[2018-06-17 01:29] LABS: ALB/GLOB RATIO 1.3 (1.0-2.1); ALBUMIN 3.9 g/dL (3.5-5.0); ALT/SGPT 18 U/L (9-52); AST/SGOT 18 U/L (14-36); BLOOD UREA NITROGEN 14 mg/dl (7-17); CALCIUM 9.5 mg/dL (8.4-10.2); GFR NON-AFRICAN AMERICAN > 60
[2018-06-17 01:30] LABS: PARTIAL THROMBOPLASTIN TIME 35.2 Seconds (25.6-37.1)
[2018-06-17] MEDS ORDERED: Morphine 4 MG/ML VIAL ONE (01:31)
[2018-06-17] MEDS ORDERED: Sodium Chloride 0.9% 50 ML IV ONE (02:15)
[2018-06-17] MEDS ORDERED: Iohexol 300 100 ML IJ ONE (02:15)
--- NOTE | 2018-06-17 02:59 | ED PDOC ---
HPI: Chest Pain Time Seen by Provider: 06/16/18 23:53 Chief Complaint (Nursing): Rib Injury Chief Complaint (Provider): Rib Injury History Per: Patient History/Exam Limitations: no limitations Onset/Duration Of Symptoms: Days (x7 days) Additional Complaint(s): 63 y/o female with history of hypertension and diabetes presents to ER for evaluation of left sided chest pain onset 1 week. Patient reports she fell off a chair on left side and reports having chest pain since then. She states pain is worse with breathing and change in movement. Patient reports she feels like she cannot take full breath because of pain. She denies cough, shortness of breath, vomiting or diarrhea. PMD: non provided Past Medical History Reviewed: Historical Data, Nursing Documentation, Vital Signs Vital Signs: Last Vital Signs Temp 98.0 F 06/16/18 23:41 Pulse 75 06/16/18 23:41 Resp 18 06/16/18 23:41 BP 165/82 H 06/16/18 23:41 Pulse Ox 100 06/16/18 23:41 - Medical History PMH: Diabetes, HTN, Hypercholesterolemia, Kidney Stones Denies: Chronic Kidney Disease Other PMH: Pulse palsy - Surgical History Surgical History: Appendectomy, Cholecystectomy - Family History Family History: States: Unknown Family Hx - Social History Current smoker - smoking cessation education provided: No Alcohol: None Drugs: Denies - Home Medications Home Medications: Ambulatory Orders Medication Instructions Recorded Atorvastatin [Lipitor] 40 mg PO DAILY 09/13/17 Cholecalciferol [Vitamin D 1000 IU] 1 tab PO DAILY 09/13/17 Dextran 70/Hypromellose 30 ml OD DAILY #1 bot 09/13/17 [Artificials Tears Drops] RX: Acyclovir [Zovirax] 800 mg PO BID #20 tablet 09/13/17 RX: Aspirin [Ecotrin] 81 mg PO DAILY 09/13/17 RX: Enalapril Maleate [Vasotec] 20 mg PO DAILY 09/13/17 RX: Eye Patch 1 each MC DAILY #1 each 09/13/17 RX: Glimepiride [amaRYL] 2 mg PO DAILY 09/13/17 RX: Sitagliptin Phos/Metformin HCl 1 tab PO BID 09/13/17 [Janumet 50-1,000 mg Tablet] predniSONE [Prednisone] 80 mg PO DAILY #40 tab 09/13/17 Naproxen [Naprosyn] 500 mg PO Q12 #14 tab 06/17/18 traMADol [Ultram] 50 mg PO Q6 PRN #12 tab 06/17/18 - Allergies Allergies/Adverse Reactions: Allergies Allergy/AdvReac Type Severity Reaction Status Date / Time No Known Allergies Allergy Verified 06/16/18 23:37 Review of Systems ROS Statement: Except As Marked, All Systems Reviewed And Found Negative Cardiovascular: Positive for: Chest Pain Respiratory: Negative for: Cough, Shortness of Breath Gastrointestinal: Negative for: Vomiting, Diarrhea Physical Exam - Reviewed Nursing Documentation Reviewed: Yes Vital Signs Reviewed: Yes - Physical Exam Appears: Positive for: Non-toxic, No Acute Distress Head Exam: Positive for: ATRAUMATIC, NORMOCEPHALIC Skin: Positive for: Normal Color, Warm, Dry Neck: Positive for: Normal, Painless ROM, Supple Cardiovascular/Chest: Positive for: Regular Rate, Rhythm. Negative for: Chest Non Tender (Left sided posterior lateral and anterior chest wall tenderness. Tenderness to ribs 3,4,5 and 6 in axillary line), Murmur Gastrointestinal/Abdominal: Positive for: Normal Exam, Soft. Negative for: Tenderness Back: Positive for: Normal Inspection. Negative for: L CVA Tenderness, R CVA Tenderness Extremity: Positive for: Normal ROM. Negative for: Tenderness, Pedal Edema Neurologic/Psych: Positive for: Alert, Oriented (x3) - Laboratory Results Result Diagrams: 06/17/18 01:00 06/17/18 01:00 - ECG O2 Sat by Pulse Oximetry: 100 (RA) Pulse Ox Interpretation: Normal Medical Decision Making Medical Decision Makin 63 y/o female with chest wall injury --Labs --CT chest --IV Morphine 0346 CT Chest FINDINGS: Normal enhancement of the main pulmonary artery and right and left pulmonary arteries. Normal enhancement of the bilateral peripheral pulmonary arteries. There is no demonstrated pulmonary embolism. Normal thoracic aorta and visualized great vessels. There is no demonstrated aortic dissection. Normal heart and pericardium. Normal mediastinum. Normal hilar regions. Normal visualized trachea and bronchi. Bilateral basilar atelectatic pulmonary changes. The lungs are well expanded. Normal pulmonary parenchyma. Normal pleura. Normal chest wall structures. Normal osseous structures. Left renal simple cyst measuring 5.4 cm. IMPRESSION: No demonstrated pulmonary embolism or arterial dissection. Bilateral basilar atelectatic pulmonary changes. Labs reviewed no sig abnormalities Results of study explained to patient; she reports improvement in symptoms and is stable for discharge Dx Rib Contusion Scribe Attestation: Documented by Jeanie Do, acting as a scribe for Gordon Isabel MD. Provider Scribe Attestation: All medical record entries made by the Scribe were at my direction and personally dictated by me. I have reviewed the chart and agree that the record accurately reflects my personal performance of the history, physical exam, medical decision making, and the department course for this patient. I have also personally directed, reviewed, and agree with the discharge instructions and disposition. Disposition - Clinical Impression Clinical Impression: Contusion of rib on left side - Patient ED Disposition Is Patient to be Admitted: No - Disposition Disposition: Routine/Home Disposition Time: 04:00 Condition: STABLE Prescriptions: Naproxen [Naprosyn] 500 mg PO Q12 #14 tab traMADol [Ultram] 50 mg PO Q6 PRN #12 tab PRN Reason: chest wall pain Instructions: Bruised Rib (DC) Forms: [facility] (Sinhala) Print Language: SWEDISH
[2018-06-17 05:16] VITALS: BP 152/86; PULSE 80; TEMP 97.9
[2018-06-17 06:48] VITALS: O2SAT 100
--- NOTE | 2018-06-17 15:27 | CT ---
Date of service: 06/17/2018 PROCEDURE: CT Chest with contrast HISTORY: left chest wall injury COMPARISON: None available. TECHNIQUE: Contiguous axial images were obtained through the chest with intravenous contrast enhancement. Sagittal and coronal reconstructions were performed. IV contrast: Radiation dose: Total exam DLP = 371.91 mGy-cm. This CT exam was performed using one or more of the following dose reduction techniques: Automated exposure control, adjustment of the mA and/or kV according to patient size, and/or use of iterative reconstruction technique. FINDINGS: LUNGS: Minimal right upper lobe linear fibrotic changes. MEDIASTINUM: Unremarkable thoracic aorta. No aneurysm or dissection. Normal sized heart. Main pulmonary artery unremarkable. No vascular congestion. No lymphadenopathy. No aortic atherosclerotic calcification or mural plaque present. PLEURA: No pleural fluid. No pneumothorax. BONES: No fracture. No destructive lesion. UPPER ABDOMEN: Grossly unremarkable. OTHER FINDINGS: 9 centimeter left renal cyst. IMPRESSION: No acute pathology.
== END 2018-06-17 04:40 | disposition home or self-care (01) ==
LOC: H.ER 22:51
DX: S20.212A Contusion of left front wall of thorax, initial encounter (principal); E11.9 Type 2 diabetes mellitus without complications; Z79.84 Long term (current) use of oral hypoglycemic drugs; I10 Essential (primary) hypertension; Z87.442 Personal history of urinary calculi; Z79.82 Long term (current) use of aspirin; W07.XXXA Fall from chair, initial encounter
CPT/HCPCS: 71260; 80053; 81003; 85025; 85610; 85730; 96374; 99284; J2270; Q9967